=== PATIENT | female | born 1965 | race African-American/Black ===

== ENCOUNTER 2016-11-19 16:28 | Emergency (ER) | payer MEDICAID, OTHER ==
[~2016-11-19] VITALS: Ht 165.1 cm; Wt 109.5 kg
[~2016-11-19 16:28] MED LIST: BUSP30TA PO; CELE100C PO; DEPA500T3 PO; METF-324 PO
[2016-11-19 16:29] VITALS: BP 139/95; PULSE 123; RESP 20; TEMP 97.6; O2SAT 97
== END 2016-11-19 18:49 | disposition left against medical advice (07) ==
LOC: NED 16:28
DX: R68.89 Other general symptoms and signs (principal)
CPT/HCPCS: 99281